=== PATIENT | male | born 1940 | race Asian ===

== ENCOUNTER 2022-08-29 08:57 | Emergency (ER) | payer OTHER ==
[~2022-08-29] VITALS: Ht 175.3 cm; Wt 72.7 kg
[2022-08-29 09:32] LABS: BASOPHILS % (AUTO) 0.8 % (0.0-2.0); EOSINOPHILS % (AUTO) 3.1 % (1.0-6.0); HEMATOCRIT 45.9 % (41-53); HEMOGLOBIN 14.7 g/dL (13.5-17.5); LYMPHOCYTES # (AUTO) 0.8 K/uL (1.0-4.8); LYMPHOCYTES % (AUTO) 20.5 % (22.0-44.0); MEAN CORPUSCULAR HEMOGLOBIN 27.8 pg (26.0-34.0); MEAN CORPUSCULAR HGB CONC 32.2 G/dL (31.0-37.0); MEAN CORPUSCULAR VOLUME 87 fL (80-100); MONOCYTES # (AUTO) 0.3 K/uL (0.1-1.0); MONOCYTES % (AUTO) 8.3 % (2.0-9.0); NEUTROPHILS # (AUTO) 2.6 K/uL (1.8-7.7); NEUTROPHILS % (AUTO) 67.3 % (40.0-70.0); PLATELET COUNT (AUTO) 168 K/uL (150-450); RED CELL DISTRIBUTION WIDTH 14.6 % (11.5-14.5)
[2022-08-29 09:40] LABS: ANION GAP 7 mmol/L (8-16); CALCIUM, TOTAL 9.1 mg/dL (8.8-10.5); CARBON DIOXIDE 32 mmol/L (22-29); CHLORIDE 100 mmol/L (98-107); CREATININE 1.09 mg/dL (0.60-1.30); GLOMERULAR FILTR. RATE CALC > 60 mL/min (>60); GLUCOSE,RANDOM 145 mg/dL (70-110); POTASSIUM 3.2 mmol/L (3.5-5.1); SODIUM SERUM 139 mmol/L (136-145); UREA NITROGEN, BLOOD 16 mg/dL (7-18)
[2022-08-29 09:45] LABS: B-TYPE NATRIURETIC PEPTIDE 77 pg/mL (0-100)
[2022-08-29] MEDS ORDERED: MECLIZINE HCL 25 MG TABLET PO ONE (09:45)
[2022-08-29 09:58] LABS: COVID AG,FIA SOURCE NASOPHARYNGEAL
[2022-08-29 10:04] LABS: ALANINE AMINOTRANSFERASE 27 U/L (12-78); ALBUMIN 3.8 g/dL (3.4-5.0); ALKALINE PHOSPHATASE 76 U/L (46-116); ASPARTATE AMINOTRANSFERASE 25 U/L (15-37); BILIRUBIN,TOTAL 0.6 mg/dL (0.1-1.0); CREATINE KINASE, TOTAL ONLY 148 U/L (39-308); PHOSPHORUS 3.2 mg/dL (2.5-4.9)
[2022-08-29] MEDS ORDERED: MECL-134 PO (11:34)
[2022-08-29 12:30] VITALS: BP 149/87
== END 2022-08-29 13:52 | disposition home or self-care (01) ==
LOC: EMS 09:02
DX: R42 Dizziness and giddiness (principal); E78.00 Pure hypercholesterolemia, unspecified; I10 Essential (primary) hypertension; Z20.822 Contact with and (suspected) exposure to COVID-19
CPT/HCPCS: 71045; 80053; 82550; 83735; 83880; 84100; 84484; 85025; 93005; 99285; 36415-L1; 36415-TC